=== PATIENT | female | born 1975 | race Caucasian/White ===

== ENCOUNTER 2017-10-07 08:42 | Emergency (ER) | payer OTHER ==
[~2017-10-07] VITALS: Ht 157.5 cm; Wt 86.2 kg
[2017-10-07 08:53] VITALS: Ht 157.5 cm; Wt 86.2 kg
[2017-10-07 12:00] VITALS: BP 122/74
== END 2017-10-07 12:30 | disposition left against medical advice (07) ==
LOC: ED 08:42
DX: M25.519 Pain in unspecified shoulder (principal); M25.569 Pain in unspecified knee; C85.90 Non-Hodgkin lymphoma, unspecified, unspecified site; Z90.710 Acquired absence of both cervix and uterus; Z90.89 Acquired absence of other organs; Z98.890 Other specified postprocedural states